=== PATIENT | male | born 1985 | race Caucasian/White ===

== ENCOUNTER 2024-08-03 09:11 | Emergency (ER) | payer SELFPAY ==
[~2024-08-03] VITALS: Ht 187.9 cm; Wt 93.0 kg
[~2024-08-03 09:11] MED LIST: MOTRIN800 MG PO; ZOFRAN ODT4 MG SL
[2024-08-03 09:19] VITALS: BP 169/92
[2024-08-03] MEDS ORDERED: AZITHROMYCIN 250 ML IV ONE (09:45)
[2024-08-03] MEDS ORDERED: predniSONE 20 MG TAB PO ONE (09:45)
[2024-08-03] MEDS ORDERED: Albuterol Sulf/Ipratropium 3 ML VIAL NEB ONE (09:45)
[2024-08-03] MEDS ORDERED: VENT7GM INH (09:49)
[2024-08-03] MEDS ORDERED: MEDROL DOSEPAK4 MG PO (09:49)
[2024-08-03] MEDS ORDERED: ZITHROMAX250 MG PO (09:49)
[2024-08-03] MEDS ORDERED: AZITHROMYCIN 250 MG TAB PO ONE (10:05)
== END 2024-08-03 10:21 | disposition home or self-care (01) ==
LOC: ED 09:11
DX: J40 Bronchitis, not specified as acute or chronic (principal); Z90.49 Acquired absence of other specified parts of digestive tract